=== PATIENT | male | born 1970 | race Two or more races ===

== ENCOUNTER 2021-04-20 12:47 | Emergency (ER) | payer SELFPAY ==
[~2021-04-20] VITALS: Ht 182.9 cm; Wt 97.3 kg
[2021-04-20 12:48] VITALS: BP 148/93
== END 2021-04-20 17:35 | disposition left against medical advice (07) ==
LOC: EMS 13:05
DX: M79.676 Pain in unspecified toe(s) (principal); Z53.21 Procedure and treatment not carried out due to patient leaving prior to being seen by health care provider